=== PATIENT | male | born 1995 | race African-American/Black ===

== ENCOUNTER 2021-04-05 15:03 | Outpatient (CLI) | payer BC | END 2021-04-05 15:04 | disposition home or self-care (01) | LOC: CSHMRI 15:03 | PROVIDERS: ATTEND Orthopaedic Surgery | DX: M23.92 Unspecified internal derangement of left knee (principal); S83.242A Other tear of medial meniscus, current injury, left knee, initial encounter; M94.8X6 Other specified disorders of cartilage, lower leg; M25.462 Effusion, left knee ==